=== PATIENT | male | born 1960 | race Caucasian/White ===

== ENCOUNTER → 2025-01-24 | Outpatient (BNVA) | payer MEDICAID, SELFPAY | END | disposition home or self-care (01) | PROVIDERS: PCP Registered Nurse Community Health; Referring Provider Registered Nurse Community Health; Visit Provider Urology | DX: N28.89 Other specified disorders of kidney and ureter (principal); N40.0 Benign prostatic hyperplasia without lower urinary tract symptoms; I10 Essential (primary) hypertension; K74.60 Unspecified cirrhosis of liver; N32.89 Other specified disorders of bladder; Z86.73 Personal history of transient ischemic attack (TIA), and cerebral infarction without residual deficits; F17.210 Nicotine dependence, cigarettes, uncomplicated; Z71.6 Tobacco abuse counseling | CPT/HCPCS: 81003; 99203; G0463 ==

== ENCOUNTER → 2025-03-06 | Outpatient (CLI) | payer MEDICAID, SELFPAY ==
--- NOTE | 2025-03-06 16:45 | XR_ITS ---
Examination: MRI abdomen with intravenous contrast. MRI abdomen without intravenous contrast. Date and time of exam: March 06, 2025, 1747 hours INDICATIONS: Diagnosis malignant neoplasm kidney Technique: Multiple axial, sagittal and coronal sections of the abdomen obtained. Transverse images, TR 6020, TE 107. T1 weighted transverse images, TR 582, TE 9.5. T2-weighted sagittal images, TR 4000, TE 105. T2-weighted sagittal images, TR 4000, TE 5. Coronal images, TR 4210, TE 107. Axial and coronal images are obtained post 20 cc intravenous injection, gadolinium. Findings: Liver contour is irregular, no focal liver lesions on the precontrast images, no abnormal enhancement of the liver Contracted gallbladder No common bile duct or common hepatic duct stones No pancreatic mass Solid appearing mass upper pole left kidney, 18 mm No abdominal lymphadenopathy No ascites IMPRESSION: Solid appearing mass upper pole left kidney, 18 mm Recommend confirmation of this mass with follow-up CT scan abdomen pelvis post intravenous contrast
== END | disposition home or self-care (01) ==
PROVIDERS: PCP Registered Nurse Community Health; Referring Provider Registered Nurse Community Health; Visit Provider Registered Nurse Community Health
DX: N28.89 Other specified disorders of kidney and ureter (principal); C64.2 Malignant neoplasm of left kidney, except renal pelvis
CPT/HCPCS: 74183; A9577

== ENCOUNTER 2025-05-09 10:44 | Emergency (ER) | payer MEDICAID, SELFPAY ==
[2025-05-09 11:17] VITALS: BP 188/96; PULSE 60; RESP 18; TEMP 36.8; O2SAT 98
[2025-05-09 11:19] VITALS: BMI 27.7
--- NOTE | 2025-05-09 11:26 | XR_ITS ---
Examination: Duplex scan of the lower extremity, unilateral right Date and time of exam: May 09, 2025, 11 3 hours INDICATIONS: Right leg swelling and pain post vein ablation procedure yesterday Technique: Duplex scan of the extremity veins using B-mode/grayscale imaging and Doppler spectral analysis and color flow Attention is directed to internal echogenicity, compression and augmentation involving these veins, color flow assessment, spectral analysis Findings: Major deep venous structures in the extremity demonstrate normal course and caliber. There is no evidence of deep vein thrombosis. Normal color flow and spectral analysis Impression: Negative for DVT..
--- NOTE | 2025-05-09 11:27 | PD.EDANKLE ---
Lower Extremity Injury RME/HPI General Chief Complaint: Ankle/Foot Injury Stated Complaint: R FOOT PAIN S/P ARTERY PROCEDURE Time Seen by Provider: 05/09/25 11:09 Arrival date/time: 05/09/25 10:44 64-year-old male patient with significant history of hypertension, was brought in by family for evaluation regarding a right ankle and foot swelling. Patient had an ablation of the varicose vein that was done by Dr. Conn, yesterday, and was placed on Himanshu wrap up to the ankle joints. This morning patient woke up with swelling to the ankle and foot with discomfort. Patient denies any fever denies any chest pain denies any shortness of breath. Patient did not take his Plavix for the last few days. Due to the procedure. Related Data Home Medications ?Medication ?Instructions ?Recorded ?Confirmed clopidogrel 75 mg tablet (Plavix) 75 mg PO QDAY 01/24/25 01/24/25 Previous Rx's ?Medication ?Instructions ?Recorded amlodipine 5 mg tablet 5 mg PO QDAY #30 tabs 03/29/19 cephalexin 250 mg capsule (Keflex) 250 mg PO QID #20 caps 03/29/19 hydrochlorothiazide 12.5 mg capsule 25 mg (2 x 12.5 mg) PO DAILY #30 03/29/19 caps lisinopril 2.5 mg tablet 10 mg (4 x 2.5 mg) PO BID #60 tabs 03/29/19 Allergies Allergy/AdvReac Type Severity Reaction Status Date / Time No Known Allergies Allergy Verified 05/09/25 10:50 Review of Systems Review of Systems Narrative Review of Systems: Review of system reviewed and within normal limits except mentioned in HPI ED Exam Narrative Physical exam: VITAL SIGNS: Reviewed. GENERAL APPEARANCE: Alert and interactive, follows commands, no acute distress, HEAD AND FACE: Non-traumatic. ENT: PERRL, pink conjunctivitis, eyelid no trauma, Mucous membrane moist. NECK: Supple, nontender, no nuchal rigidity. CHEST: No tenderness, no crepitus, no paradoxical movement, no retractions. LUNGS: Clear, well ventilated, symmetric, no rales, no wheezing, no ronchi, no stridor, good breath sounds bilaterally. HEART: Regular rate, regular rhythm, no murmur, no gallops. ABDOMEN: Soft, positive bowel sounds, nondistended, no guarding, nontender, no rebound, no masses, RECTAL: Deferred. GENITAL: Deferred. NEUROLOGICAL: Gross motor function intact sensory function intact, Appropriate for age. MUSCULOSKELETAL: low back nontender, full range of motion. EXTREMITIES: + Right foot and ankle swelling +1, mild discomfort, no redness distal neurovascular status intact full range of motion. On an Himanshu wrap all the way to the ankle joints prior mid thigh. SKIN: Color pink, dry, no rash, no lacerations, no abrasions, no contusions. LYMPHATICS: Deferred. Course Quality Measures none Orders Category Date Time Status US venous doppler LE RT Stat Exams 05/09/25 11:26 Completed Vital Signs Vital signs: Vital Signs Temperature 98.2 F 05/09/25 11:17 Pulse Rate 60 05/09/25 11:17 Respiratory Rate 18 05/09/25 11:17 Blood Pressure 188/96 H 05/09/25 11:17 Pulse Oximetry (%) 98 05/09/25 11:17 Oxygen Delivery Method Room Air 05/09/25 11:17 Extremity Injury, Lower MDM Narrative MDM Narrative:: 64-year-old male patient with significant history of hypertension, was brought in by family for evaluation regarding a right ankle and foot swelling. Patient had an ablation of the varicose vein that was done by Dr. Conn, yesterday, and was placed on Himanshu wrap up to the ankle joints. This morning patient woke up with swelling to the ankle and foot with discomfort. Patient denies any fever denies any chest pain denies any shortness of breath. Patient did not take his Plavix for the last few days. Due to the procedure. Ultrasound of the right lower extremity was ordered to rule out any DVT, came back unremarkable. I rewrapped the leg all the way to the toes. Patient swelling could be secondary to the Himanshu wrap causing tourniquet effect. Patient was advised to ambulate as needed. Stable for discharge home Patient data External records reviewed:: None Clinical information provided by:: patient and family Social determinants that could affect healthcare access:: none Patient has the following chronic illnesses:: Hypertension, status post recent varicose vein ablation How is presenting disease/condition affected by chronic disease/condition?: exacerbated by Evaluation data The following diagnostics were reviewed and interpreted by me:: radiology exam(s) Lab and/or radiology exams considered but not ordered:: None Interpretation Summary: See MDM Medications / Prescriptions Medications or Prescriptions considered but not ordered:: None Medication administrations:: None Consultations Consultation(s) initiated? (list below): No Diagnosis Extremity Injury, Lower Differential Diagnosis: ankle sprain and strain and other (Leg swelling ankle swelling status post varicose vein ablation) Most likely diagnosis given after review of the tests above:: Foot and ankle swelling status post varicose vein ablation Admission Indicated Admission indicated?: not indicated Admission Request Was there a request for admission?: No Disposition Plan Disposition Plan: Discharge Discharge Attestation Discharge Attestation: The patient and all family members were given an opportunity to ask questions and understood the discharge instructions. Discharge instructions specifically effects, indications for sooner follow up or return to the emergency department, and the expected course of current diagnosis. Patient condition: Stable Discharge Plan Plan Patient Disposition: HOME (Self Care) Discharge Disposition comment: Stable Prescriptions/Referrals Prescriptions/Med Rec: No Action clopidogrel [Plavix] 75 mg tablet 75 mg PO QDAY amlodipine 5 mg Tablet 5 mg PO QDAY Qty: 30 0RF hydrochlorothiazide 12.5 mg Capsule 25 mg PO DAILY Qty: 30 0RF lisinopril 2.5 mg Tablet 10 mg PO BID Qty: 60 0RF cephalexin [Keflex] 250 mg capsule 250 mg PO QID Qty: 20 0RF Referrals: Dayan Phillip FNP [Primary Care Provider] - In 1 week Problem List Clinical Impression: Foot swelling Patient/Caregiver Discharge Instructions Discharge Activity: activity as tolerated Education Materials: ED Leg Swelling in a Single Leg Additional Instructions: Thank you for the opportunity for serving you today. You are stable for discharged . You are advised to: Follow-up with your PCP in 1 to 2 days Return to ED for worsening of symptoms Elevate legs as needed. Please apply compression Himanshu wrap as instructed Print Language: Icelandic Stand Alone Forms: Lisa Award Info., Patient Portal Info Letter YULISA/MILTON Supervising Physician YULISA/MILTON Supervising Physician: MD Bibiana
== END 2025-05-09 13:14 | disposition home or self-care (01) ==
PROVIDERS: Emergency Provider Emergency Medicine; PCP Registered Nurse Community Health
DX: S99.921A Unspecified injury of right foot, initial encounter (principal); I10 Essential (primary) hypertension; X58.XXXA Exposure to other specified factors, initial encounter
CPT/HCPCS: 93971; 99282

== ENCOUNTER → 2025-05-31 | Outpatient (BNVA) | payer MEDICAID, SELFPAY | END | disposition home or self-care (01) | PROVIDERS: PCP Registered Nurse Community Health; Referring Provider Registered Nurse Community Health; Visit Provider Urology | DX: N28.89 Other specified disorders of kidney and ureter (principal); Z80.9 Family history of malignant neoplasm, unspecified; I10 Essential (primary) hypertension; K74.60 Unspecified cirrhosis of liver; Z87.891 Personal history of nicotine dependence | CPT/HCPCS: 99212; G0463 ==